=== PATIENT | female | born 1955 | race Caucasian/White ===

== ENCOUNTER 2022-05-09 13:19 | Emergency (ER) | payer SELFPAY ==
[2022-05-09 13:24] VITALS: BP 138/64; PULSE 70; RESP 18; TEMP 98; BMI 31.4
[2022-05-09] MEDS ORDERED: ACETAMINOPHEN 500 MG TABLET (FP) PO ONE (14:02)
[2022-05-09] MEDS ORDERED: LIDOCAINE 5% TOPICAL PATCH TP ONE (14:02)
[2022-05-09] MEDS ORDERED: ACETAMINOPHEN 325 MG TABLET (FP) ONE (14:05)
[2022-05-09] MEDS ORDERED: LIDOCAINE 5% TOPICAL PATCH ONE ×2 (14:05→14:33)
[2022-05-09] MEDS ORDERED: LIDOCAINE HCL 1%, 10 MG/ML (50 mL VIAL) SQ ONE (14:25)
[2022-05-09] MEDS ORDERED: LIDOCAINE HCL 1%, 10 MG/ML (20ML VIAL) ONE (14:33)
[2022-05-09] MEDS ORDERED: LIDOCAINE PATCH REMOVAL MC ONE (22:00)
== END 2022-05-09 15:50 | disposition home or self-care (01) ==
LOC: JER 13:19 → JERFT 13:19
DX: M79.604 Pain in right leg (principal)
CPT/HCPCS: 99283-25